=== PATIENT | female | born 1955 | race Caucasian/White ===

== ENCOUNTER 2021-07-23 12:28 | Emergency (ER) | payer MEDICAID, MEDICARE ==
[~2021-07-23] VITALS: Ht 157.5 cm; Wt 68.2 kg
[~2021-07-23 12:28] MED LIST: GLIP5TAB11 PO; LISI10TA24 PO; METF-446 PO; PIOG30TA10 PO
[2021-07-23] MEDS ORDERED: ATOR10TA84 PO (12:43)
[2021-07-23] MEDS ORDERED: CALC-1194 PO (12:43)
[2021-07-23] MEDS ORDERED: PIOG15TA6 PO (12:43)
[2021-07-23] MEDS ORDERED: VITA400T9 PO (12:43)
[2021-07-23] MEDS ORDERED: LISI-892 PO (12:43)
[2021-07-23] MEDS ORDERED: METF-960 PO (12:43)
[2021-07-23] MEDS ORDERED: GLIP10 PO (12:43)
[2021-07-23] MEDS ORDERED: OMEG-50 PO (12:43)
[2021-07-23 15:19] VITALS: BP 124/67
[2021-07-23 15:49] LABS: APPEARANCE,URINE CLEAR (CLEAR); BILIRUBIN,URINE NEGATIVE (NEGATIVE); GLUCOSE, URINE (UA) NEGATIVE (NEGATIVE); KETONES,URINE NEGATIVE (NEGATIVE); LEUKOCYTE ESTERASE ,URINE MODERATE (NEGATIVE); NITRATE,URINE NEGATIVE (NEGATIVE); OCCULT BLOOD,URINE NEGATIVE (NEGATIVE); PROTEIN,URINE NEGATIVE (NEGATIVE); UROBILINOGEN,URINE 0.2 mg/dL (<=1.0)
[2021-07-23 16:09] LABS: BACTERIA,URINE Few /HPF (None Seen); RBC,URINE 0-2 /HPF (0-2); SQUAMOUS EPITHELIAL CELL,UR Few /LPF (None Seen)
== END 2021-07-23 15:39 | disposition home or self-care (01) ==
LOC: EMS 12:28
DX: J06.9 Acute upper respiratory infection, unspecified (principal); R19.7 Diarrhea, unspecified; E11.9 Type 2 diabetes mellitus without complications; I10 Essential (primary) hypertension; Z20.822 Contact with and (suspected) exposure to COVID-19; Z79.84 Long term (current) use of oral hypoglycemic drugs; Z79.899 Other long term (current) drug therapy
CPT/HCPCS: 81001; 82962; 87077; 87086; 99283; U0003